=== PATIENT | female | born 1945 | race Two or more races ===

== ENCOUNTER 2016-06-25 14:00 | Outpatient (RCR) | payer OTHER ==
[~2016-06-25 14:00] MED LIST: ACETAMINOPHEN325 M1 ORAL; ASPIRIN81 MG ORAL; ATENOLOL100 MG ORAL; COUMADIN5 MG ORAL; DURAGESIC1 EA TOPIC; LASIX20 M1 ORAL; LOVENOX10 M1 SUBQ; NAPROXEN500 M2 ORAL; OMEPRAZOLE20 M3 ORAL; OXYCONTIN20 MG ORAL; PAXIL10 MG ORAL; PERCOCET1 TAB ORAL; PERI-COLACE1 EA ORAL; percocet PO
[2016-07-04] MEDS ORDERED: FENTANYL1 EAC3 TDERMAL (14:11)
== END 2016-07-12 | disposition home or self-care (01) ==
LOC: PTY 14:00
DX: M51.36 Other intervertebral disc degeneration, lumbar region (principal)
CPT/HCPCS: 97140; 97162; G0283

== ENCOUNTER 2016-07-04 14:00 | Emergency (ER) | payer OTHER ==
[~2016-07-04] VITALS: Ht 160 cm; Wt 65.3 kg
[2016-07-04] VITALS (7 sets, daily range): BP systolic 100–144; BP diastolic 44–75
[2016-07-04] MEDS ORDERED: FENTANYL1 EAC3 TDERMAL (14:11)
[2016-07-04 15:03] LABS: BASOPHILS % (AUTO) 0.5 % (0.0-2.0); LYMPHOCYTES % (AUTO) 11.7 % (20.0-45.0); MEAN CORPUSCULAR HEMOGLOBIN 28.9 PG (27.0-31.0); MEAN CORPUSCULAR HGB CONC 31.5 G/DL (32.0-36.0); MEAN CORPUSCULAR VOLUME 92 FL (80-99); MEAN PLATELET VOLUME 6.8 FL (6.5-10.1); NEUTROPHILS % (AUTO) 83.8 % (45.0-75.0); PLATELET COUNT 373 K/UL (150-450); RED BLOOD COUNT 3.96 M/UL (4.20-5.40); RED CELL DISTRIBUTION WIDTH 13.4 % (11.6-14.8); WHITE BLOOD COUNT 14.2 K/UL (4.8-10.8)
[2016-07-04 15:16] LABS: TROPONIN I < 0.30 ng/mL (<=0.30)
[2016-07-04 15:17] LABS: ALANINE AMINOTRANSFERASE 21 U/L (3-33); ALBUMIN/GLOBULIN RATIO 1.3 (1.0-2.7); ANION GAP 17 (5-15); ASPARTATE AMINO TRANSFERASE 31 U/L (5-40); CALCIUM 9.5 mg/dL (8.6-10.2); CARBON DIOXIDE 25 mEQ/L (20-30); CHLORIDE 91 mEQ/L (98-107); HEMOLYSIS 3; SODIUM 133 mEQ/L (135-145); TOTAL PROTEIN 7.9 g/dL (6.6-8.7)
[2016-07-04 15:27] LABS: CKMB 3.3 ng/mL (< 3.8)
--- NOTE | 2016-07-04 15:29 | Emergency Room Report ---
History of Present Illness General Chief Complaint: Generalized Weakness Source: Patient, Medical Record Present Illness HPI 71 YOF presents for "weakness" since applying an "old " fentanyl patch this morning (or ?last night). Found by family to be minimally responsive, difficult to arouse therafter. Currently, has no complaints. Ambulated into ED. Denies fever/chills, chest pain, SOB, URI symptoms, abd pain, vomiting, urinary complaints. Stated she completed Abx for "urine infection" couple weeks ago. History of HTN but didnt take med because BP was low after fentanyl use. History of lower extremity DVT "last year" now off coumadin because "my doctor told me to stop." Allergies: Coded Allergies: MILK (Verified Allergy, Unknown, DIGESTION PROBLEMS, 04/03/15) Patient History Past Medical History: HTN, other - DVT Past Surgical History: other - Hip replacement Pertinent Family History: none Social History: Denies: alcohol use, drug use, smoking Now: No Immunizations: UTD Reviewed Nursing Documentation: PMH: Agreed, PSxH: Agreed Nursing Documentation-PMH Hx Cardiac Problems: Yes Hx Hypertension: Yes Hx Cancer: No Hx Gastrointestinal Problems: Yes Hx Weakness: Yes - LEFT LEG Review of Systems All Other Systems: negative except mentioned in HPI Physical Exam Vital Signs Date Time Temp Pulse Resp B/P Pulse Ox O2 Delivery O2 Flow Rate FiO2 07/04/16 14:02 97.9 80 16 144/69 95 Room Air Sp02 EP Interpretation: reviewed, normal General Appearance: normal inspection, well appearing, no apparent distress, alert, GCS 15 Head: atraumatic Eyes: bilateral eye EOMI, bilateral eye PERRL ENT: normal ENT inspection, hearing grossly normal, normal voice, TMs + canals normal, uvula midline, dry mucus membranes Neck: normal inspection, full range of motion, supple, thyroid normal, no meningismus, no bony tend Respiratory: normal inspection, lungs clear, normal breath sounds, no respiratory distress, no retraction, no wheezing Cardiovascular #1: regular rate, rhythm, no edema Genitourinary: no CVA tenderness Musculoskeletal: normal inspection, back normal, normal range of motion, Nathen' s Sign negative Neurologic: normal inspection, alert, oriented x3, responsive, certified ophthalmic surgical assistant III-XII nml as tested, motor strength/tone normal, speech normal Psychiatric: normal inspection, judgement/insight normal, mood/affect normal Skin: normal inspection, normal color, no rash Lymphatic: normal inspection, no adenopathy Medical Decision Making Medicare Attestation Caleb Voss MD hereby attest that the medical record entry for date of service, 03/18/16 accurately reflects signatures/notations that I made in my capacity as MD when I treated/diagnosed the above listed Medicare beneficiary. I attest that this information is true, accurate and complete to the best of my knowledge. I understand that any falsification, omission, or concealment of material fact may subject me to administrative, civil, or criminal liability. This patient warrants hospital admission for extreme of age and has a condition that cannot be treated as outpatient. Diagnostic Impression: Primary Impression: Episode of generalized weakness Additional Impressions: BETHEL (acute kidney injury) Opiate overdose Qualified Codes: T40.601A - Poisoning by unspecified narcotics, accidental ( unintentional), initial encounter UTI (urinary tract infection) Qualified Codes: N30.00 - Acute cystitis without hematuria ER Course Leuks: 14k. CXR: No PNA UA with UTI No signs/symptoms of flu No abd pain Concern for uro-sepsis given inadequately treated UTI recently (dont have Cx results) No with leuks and weakness Blood Cx pending Ceftriaxone given in ED Patient and family concerned, agree for admission Endorsed for med/surg admission at 918pm to Dr Sawant as a [facility] patient We called [facility] at 620pm to start the process, faxed face sheet. They did not respond. EKG Diagnostic Results Rate: normal Rhythm: NSR ST Segments: other ASA given to the pt in ED: No Rhythm Strip Diag. Results EP Interpretation: yes Rate: 65 Rhythm: NSR, no PVC's, no ectopy Chest X-Ray Diagnostic Results EP Interpretation: Yes Findings: no consolidation, no effusion, no pneumothorax, no acute cardiopulmonary disease Number of Views: 1 Last Vital Signs Date Time Temp Pulse Resp B/P Pulse Ox O2 Delivery O2 Flow Rate FiO2 07/04/16 14:10 16 144/69 95 Room Air 07/04/16 14:02 97.9 80 Status: improved Disposition: ADMITTED INPATIENT Condition: Serious Referrals: ALLEYLESTERDEMETRICE,REFERRING (PCP) CALEB VOSS M.D. Jul 04, 2016 15:29
--- NOTE | 2016-07-04 15:54 | Diagnostic Imaging Report ---
Indication: Chest Pain Comparison: None A single view chest radiograph was obtained. Findings: No definite infiltrate or pulmonary vascular congestion identified. The heart is enlarged. The aorta is mildly enlarged consistent with atherosclerotic vascular disease. The bones are osteopenic. Impression: No acute disease
[2016-07-04 16:21] LABS: APPEARANCE,URINE CLEAR; KETONES,URINE 1+ (NEGATIVE); LEUKOCYTE ESTERASE ,URINE 3+ (NEGATIVE); NITRITE,URINE NEGATIVE (NEGATIVE); PH,URINE 5 (4.5-8.0); PROTEIN,URINE 3+ (NEGATIVE); UROBILINOGEN,URINE NORMAL MG/DL (0.0-1.0)
[2016-07-04 16:36] LABS: BACTERIA,URINE MODERATE /HPF; SQUAMOUS EPITHELIAL CELL,UR FEW /LPF (NONE/OCC); YEAST,URINE FEW /HPF
[2016-07-04] MEDS ORDERED: cefTRIAXone 1 GM in NS 55 ML IVPB ONE (17:00)
[2016-07-04] MEDS ORDERED: Pantoprazole Inj IVP ONE (18:15)
--- NOTE | 2016-07-06 18:56 | Cardiology Report ---
APPROVED REPORT EKG Measurement Heart [id number] Normal sinus rhythm Left bundle branch block Abnormal ECG
== END 2016-07-04 23:48 | disposition short-term general hospital (02) ==
LOC: EMR 14:22
DX: R53.1 Weakness (principal); N17.9 Acute kidney failure, unspecified; T40.601A Poisoning by unspecified narcotics, accidental (unintentional), initial encounter; Y92.9 Unspecified place or not applicable; N39.0 Urinary tract infection, site not specified; I10 Essential (primary) hypertension; Z86.718 Personal history of other venous thrombosis and embolism
CPT/HCPCS: 36415; 71010; 80053; 80300; 81003; 82550; 82553; 84484; 85025; 86710; 87040; 87086; 87181; 93005; 96360; 96374; 96375; 99285; C9113; J0696; J2405

== ENCOUNTER 2016-08-20 14:00 | Outpatient (RCR) | payer OTHER ==
[~2016-08-20 14:00] MED LIST changes: +FENTANYL1 EAC3 TDERMAL
== END 2016-09-11 | disposition home or self-care (01) ==
LOC: PTY 14:00
DX: M51.36 Other intervertebral disc degeneration, lumbar region (principal); M76.31 Iliotibial band syndrome, right leg; E73.9 Lactose intolerance, unspecified
CPT/HCPCS: 97110; 97140; G0283

== ENCOUNTER 2016-08-23 10:00 | Outpatient (RCR) | payer OTHER | END 2016-09-11 | disposition home or self-care (01) | LOC: PTY 10:00 | DX: M51.36 Other intervertebral disc degeneration, lumbar region (principal); M67.911 Unspecified disorder of synovium and tendon, right shoulder; M75.50 Bursitis of unspecified shoulder; Z96.642 Presence of left artificial hip joint | CPT/HCPCS: 97110; 97140; 97162; G0283 ==

== ENCOUNTER 2016-10-03 13:45 | Outpatient (RCR) | payer OTHER | END 2016-10-11 | disposition home or self-care (01) | LOC: PTY 13:45 | DX: M51.36 Other intervertebral disc degeneration, lumbar region (principal); M76.31 Iliotibial band syndrome, right leg; E73.9 Lactose intolerance, unspecified | CPT/HCPCS: 97110; 97140; G0283 ==

== ENCOUNTER 2016-10-07 13:00 | Outpatient (RCR) | payer OTHER | END 2016-10-11 | disposition home or self-care (01) | LOC: PTY 13:00 | DX: M67.911 Unspecified disorder of synovium and tendon, right shoulder (principal); M75.50 Bursitis of unspecified shoulder | CPT/HCPCS: 97140; G0283 ==

== ENCOUNTER 2016-10-21 14:14 | Outpatient (RCR) | payer OTHER | END 2016-11-11 | disposition home or self-care (01) | LOC: PTY 14:14 | DX: M51.36 Other intervertebral disc degeneration, lumbar region (principal) | CPT/HCPCS: 97110; 97140; G0283 ==

== ENCOUNTER 2016-10-28 15:00 | Outpatient (RCR) | payer OTHER | END 2016-11-11 | disposition home or self-care (01) | LOC: PTY 15:00 | DX: M67.911 Unspecified disorder of synovium and tendon, right shoulder (principal); M75.50 Bursitis of unspecified shoulder | CPT/HCPCS: 97110; 97140; G0283 ==

== ENCOUNTER 2016-11-07 14:00 | Outpatient (RCR) | payer OTHER | END 2016-11-11 | disposition home or self-care (01) | LOC: PTY 14:00 | DX: M25.551 Pain in right hip (principal); Z96.642 Presence of left artificial hip joint; Z96.641 Presence of right artificial hip joint; M67.911 Unspecified disorder of synovium and tendon, right shoulder; M75.50 Bursitis of unspecified shoulder | CPT/HCPCS: 97110; 97140; 97162; G0283 ==

== ENCOUNTER 2016-12-11 14:00 | Outpatient (RCR) | payer OTHER | END 2016-12-12 | disposition home or self-care (01) | LOC: PTY 14:00 | DX: M25.551 Pain in right hip (principal); Z96.642 Presence of left artificial hip joint; Z96.641 Presence of right artificial hip joint; M67.911 Unspecified disorder of synovium and tendon, right shoulder; M75.50 Bursitis of unspecified shoulder | CPT/HCPCS: 97110; 97140; G0283 ==

== ENCOUNTER 2017-01-06 14:00 | Outpatient (RCR) | payer OTHER | END 2017-01-11 | disposition home or self-care (01) | LOC: PTY 14:00 | DX: Z96.642 Presence of left artificial hip joint (principal); Z96.641 Presence of right artificial hip joint | CPT/HCPCS: 97110; 97140; G0283 ==

== ENCOUNTER 2017-01-09 11:15 | Outpatient (RCR) | payer OTHER | END 2017-01-11 | disposition home or self-care (01) | LOC: PTY 11:15 | DX: M51.36 Other intervertebral disc degeneration, lumbar region (principal) | CPT/HCPCS: 97110; 97140; G0283 ==

== ENCOUNTER 2017-01-14 15:11 | Outpatient (RCR) | payer OTHER | END 2017-02-11 | disposition home or self-care (01) | LOC: PTY 15:11 | DX: M51.36 Other intervertebral disc degeneration, lumbar region (principal) | CPT/HCPCS: 97110; 97140; G0283 ==